=== PATIENT | male | born 1970 | race Caucasian/White ===

== ENCOUNTER 2020-10-16 06:43 | Emergency (ER) | payer SELFPAY ==
[~2020-10-16] VITALS: Ht 177.8 cm; Wt 77.3 kg
[2020-10-16 11:00] VITALS: BP 160/105
== END 2020-10-16 11:12 | disposition home or self-care (01) | DRG 552 ==
LOC: ED 06:43
DX: S16.1XXA Strain of muscle, fascia and tendon at neck level, initial encounter (principal); S39.012A Strain of muscle, fascia and tendon of lower back, initial encounter; W19.XXXA Unspecified fall, initial encounter; Y99.0 Civilian activity done for income or pay